=== PATIENT | male | born 1950 | race Caucasian/White ===

== ENCOUNTER 2017-10-29 14:12 | Observation (INO) | payer BC ==
[2017-10-29 15:13] LABS: BASO % 0.8 % (0.0-2.0); EOS # 0.1 K/uL (0.0-0.7); HEMOGLOBIN 14.7 g/dL (12.0-18.0); LYMPH # 1.1 K/uL (1.0-4.3); LYMPH % 22.1 % (20.0-40.0); MEAN CELL VOLUME 79.5 fL (80.0-94.0); MEAN CORPUSCULAR HEMOGLOBIN 26.4 pg (27.0-31.0); MEAN CORPUSCULAR HGB CONC 33.1 g/dL (33.0-37.0); MEAN PLATELET VOLUME 8.9 fL (7.2-11.7); MONO # 0.5 K/uL (0.0-0.8); MONO % 9.5 % (0.0-10.0); NEUT # 3.3 K/uL (1.8-7.0); NEUT % 65.6 % (50.0-75.0); NRBC % 0.1 % (0.0-2.0); RBC 5.59 Mil/uL (4.40-5.90); RED CELL DISTRIBUTION WIDTH 15.9 % (11.5-14.5); WHITE BLOOD COUNT 5.1 K/uL (4.8-10.8)
[2017-10-29 15:31] LABS: ALB/GLOB RATIO 1.2 (1.0-2.1); ALBUMIN 3.9 g/dL (3.5-5.0); ALT/SGPT 14 U/L (21-72); AST/SGOT 19 U/L (17-59); BLOOD UREA NITROGEN 21 mg/dL (9-20); CALCIUM 8.4 mg/dl (8.6-10.4); GFR AFRICAN-AMERICAN > 60; GFR NON-AFRICAN AMERICAN 55; LIPASE 74 U/L (23-300)
[2017-10-29 15:32] LABS: URINE BILIRUBIN NEGATIVE (NEGATIVE); URINE BLOOD 1+ (NEGATIVE); URINE CLARITY Clear (Clear); URINE COLOR Straw (YELLOW); URINE GLUCOSE (UA) NORMAL (Normal); URINE LEUKOCYTE ESTERASE NEG Leu/uL (Negative); URINE PROTEIN NEGATIVE (NEGATIVE); URINE UROBILINOGEN NORMAL mg/dL (0.2-1.0)
--- NOTE | 2017-10-29 16:14 | CT ---
PROCEDURE: CT Abdomen and Pelvis without intravenous contrast HISTORY: flank pain COMPARISON: None. TECHNIQUE: Without contrast.. Contrast Dose: 0 Radiation dose: Total exam DLP = Total exam DLP = 553.05 mGy-cm. This CT exam was performed using one or more of the following dose reduction techniques: Automated exposure control, adjustment of the mA and/or kV according to patient size, and/or use of iterative reconstruction technique. FINDINGS: LOWER THORAX: Bilateral gynecomastia LIVER: Unremarkable. No gross lesion or ductal dilatation. GALLBLADDER AND BILE DUCTS: Unremarkable. PANCREAS: Unremarkable. No gross lesion or ductal dilatation. SPLEEN: Unremarkable. ADRENALS: Unremarkable. No mass. KIDNEYS AND URETERS: Left hydroureteronephrosis. Obstructing 12 mm calculus proximal left ureter. This may reflect several adjacent calculi. Mid left renal cortical cyst, 4.3 cm. No right renal calculus. No other renal mass. VASCULATURE: Unremarkable. No aortic aneurysm. BOWEL: Unremarkable. No obstruction. No gross mural thickening. APPENDIX: Not identified. No secondary findings. PERITONEUM: Unremarkable. No free fluid. No free air. LYMPH NODES: Unremarkable. No enlarged lymph nodes. BLADDER: Poorly distended. No gross abnormality. REPRODUCTIVE: Prostatectomy. BONES: No acute fracture. Grade 1 anterolisthesis L4-5 and grade 1 retrolisthesis L5-S1. No spondylolysis. OTHER FINDINGS: None. IMPRESSION: Obstructing 12 mm calculus proximal left ureter with left hydroureteronephrosis. Please note that this may represent several smaller calculi adjacent to 1 another. Additional minor findings as above.
--- NOTE | 2017-10-29 16:41 | CP.PCM.HP ---
<Mayito Larson - Last Filed: 10/29/17 18:48> History of Present Illness - History of Present Illness History of Present Illness: CC: Flank pain HPI: Patient is 67 year old male, with PMHx of osteoarthritis (knee and hand), chronic low back pain, nephrolithiasis, prostate cancer (prostactectomy in 2007 ) and overactive bladder, who presents to the ED for flank pain. Patient report he was sent up by his PMD, Dr. Weeks due to large size of kidney stone. Patient reports flank pain initially began three weeks ago, which has been increasing over the past week. Describes it as "pinching sensation" in in his left flank, that does not radiate. He rates pain as 9/10 on the severity scale, and is not relieved by "anything." Patient reports pain is so bad he has "not slept for a week." Pain has been associated with fever, nausea, and worsening urinary hesitation over the past "few days." Patient admits having 3 prior episodes of kidney stones, but does not remember what the stones are made out of. He reports last lithotripsy was in ~3 years ago in [place]. Patient denies chest pain, palpitations, abdominal pain, headache, or diarrhea. 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 Weeks Meds: Celebrex 200mg PO PRN 1-2 x per day, Celexa 500mg PO Daily for back pain , Vesicare 20mg PO DAily, Lidocaine patch PRN, Nasonex Present on Admission - Present on Admission Any Indicators Present on Admission: No Review of Systems - Constitutional Constitutional: Fever. absent: Anorexia, Headache - EENT Eyes: absent: Blurred Vision, Change in Vision Nose/Mouth/Throat: absent: Nasal Discharge, Sore Throat - Cardiovascular Cardiovascular: absent: Chest Pain, Dyspnea - Respiratory Respiratory: absent: Cough, Dyspnea - Gastrointestinal Gastrointestinal: Nausea. absent: Abdominal Pain, Constipation, Vomiting - Genitourinary Genitourinary: Difficulty Urinating, Flank Pain (left), Urinary Hesitance. absent: Dysuria - Musculoskeletal Musculoskeletal: Back Pain (chronic). absent: Numbness, Tingling - Integumentary Integumentary: absent: Dry Skin, Wounds - Neurological Neurological: absent: Numbness, Headaches, Tingling, Weakness - Psychiatric Psychiatric: absent: Anxiety, Depression - Endocrine Endocrine: absent: Fatigue, Palpitations Past Patient History - Infectious Disease Hx of Infectious Diseases: None - Past Social History Smoking Status: Never Smoked - RENAL Hx Kidney Stones: Yes - MUSCULOSKELETAL/RHEUMATOLOGICAL Hx Arthritis: Yes - GENITOURINARY/GYNECOLOGICAL Hx Prostate Problems: Yes - PSYCHIATRIC Hx Substance Use: No - SURGICAL HISTORY Hx Surgeries: Yes Hx Joint Replacement: Yes (right knee) Other/Comment: Prostate surgery - ANESTHESIA Hx Anesthesia: Yes Hx Anesthesia Reactions: No Meds Allergies/Adverse Reactions: Allergies Allergy/AdvReac Type Severity Reaction Status Date / Time No Known Allergies Allergy Verified 08/13/17 11:51 Physical Exam - Constitutional Appears: Non-toxic, No Acute Distress - Head Exam Head Exam: ATRAUMATIC, NORMAL INSPECTION - Eye Exam Eye Exam: EOMI. absent: Scleral icterus Pupil Exam: PERRL - ENT Exam ENT Exam: Mucous Membranes Moist - Respiratory Exam Respiratory Exam: Clear to Auscultation Bilateral, NORMAL BREATHING PATTERN. absent: Rales, Rhonchi, Wheezes - Cardiovascular Exam Cardiovascular Exam: REGULAR RHYTHM, +S1, +S2 - GI/Abdominal Exam GI & Abdominal Exam: Normal Bowel Sounds, Soft. absent: Tenderness - Extremities Exam Extremities exam: Positive for: normal inspection. Negative for: pedal edema, tenderness - Back Exam Back exam: CVA tenderness (L). absent: CVA tenderness (R) - Neurological Exam Neurological exam: Alert, CN II-XII Intact, Normal Gait, Oriented x3 - Psychiatric Exam Psychiatric exam: Normal Affect, Normal Mood - Skin Skin Exam: Normal Color, Warm Results - Vital Signs Recent Vital Signs: Last Vital Signs Temp 97.9 F 10/29/17 14:18 Pulse 85 10/29/17 14:18 Resp 18 10/29/17 14:18 BP 164/80 H 10/29/17 14:18 Pulse Ox 100 10/29/17 14:18 - Labs Result Diagrams: 10/29/17 15:09 10/29/17 15:09 Labs: Laboratory Results - last 24 hr 10/29/17 10/29/17 10/29/17 15:09 15:09 15:09 WBC 5.1 RBC 5.59 Hgb 14.7 Hct 44.4 MCV 79.5 L MCH 26.4 L MCHC 33.1 RDW 15.9 H Plt Count 171 MPV 8.9 Neut % (Auto) 65.6 Lymph % (Auto) 22.1 [place] % (Auto) 9.5 Eos % (Auto) 2.0 Baso % (Auto) 0.8 Neut # (Auto) 3.3 Lymph # (Auto) 1.1 [place] # (Auto) 0.5 Eos # (Auto) 0.1 Baso # (Auto) 0.0 Sodium 142 Potassium 4.3 Chloride 98 Carbon Dioxide 27 Anion Gap 21 H BUN 21 H Creatinine 1.3 Est GFR ( Amer) > 60 Est GFR (Non-Af Amer) 55 Random Glucose 107 Calcium 8.4 L Total Bilirubin 0.5 AST 19 ALT 14 L D Alkaline Phosphatase 57 Total Protein 7.3 Albumin 3.9 Globulin 3.4 Albumin/Globulin Ratio 1.2 Lipase 74 Urine Color Straw Urine Clarity Clear Urine pH 7.0 Ur Specific [place] 1.006 Urine Protein Negative Urine Glucose (UA) Normal Urine Ketones Negative Urine Blood 1+ H Urine Nitrate Negative Urine Bilirubin Negative Urine Urobilinogen Normal Ur Leukocyte Esterase Neg Urine WBC (Auto) 1 Urine RBC (Auto) 2 Assessment & Plan - Assessment and Plan (Free Text) Plan: Nephrolithiasis Admit to med surg Afebrile, No Leukocytosis History of 3 prior stones of unknown make-up (last lithotripsy in [facility] 3 years ago) CT A/P (10/29/17): Obstructing 12 mm calculus proximal left ureter with left hydroureteronephrosis. Please note that this may represent several smaller calculi adjacent to 1 another. UA (10/29/17): 1+ blood, negative nitrate, negative LE, [address] Zacarias, Urology regional engagement consultant, help appreciated - f/u reccs Dilaudid 1mg STAT in ED Dilaudid 1mg IV Q4H PRN f/u urine culture Pre-op workup: f/u CXR, PT/INR EKG (10/29/17): Sinus bradycardia @ [address]/T wave changes. NPO for possible procedure in AM Elevated BP since admission Pt denies history of HTN Etiology: Likely pain from kidney stone Monitor Overactive bladder Hold home Vesicare Chronic Low Back Pain History of trauma Hold home lidocaine patches CT A/P (10/29/17): Incidental finding - Grade 1 anterolisthesis L4-L5 and grade 1 retrolisthesis L5-S1. No spondylosis. Hx of prostate cancer Prostatectomy in 2007 Prophylaxis HOLD VTE due to potential surgical procedure SCDs Protonix 40 mg PO Daily Mayito Larson PGY-2 <Bill Maharaj H - Last Filed: 10/29/17 19:12> Results - Vital Signs Recent Vital Signs: Last Vital Signs Temp 98 F 10/29/17 18:42 Pulse 67 10/29/17 18:42 Resp 20 10/29/17 18:42 BP 165/80 H 10/29/17 18:42 Pulse Ox 97 10/29/17 18:42 - Labs Result Diagrams: 10/29/17 15:09 10/29/17 15:09 Labs: Laboratory Results - last 24 hr 10/29/17 10/29/17 10/29/17 15:09 15:09 15:09 WBC 5.1 RBC 5.59 Hgb 14.7 Hct 44.4 MCV 79.5 L MCH 26.4 L MCHC 33.1 RDW 15.9 H Plt Count 171 MPV 8.9 Neut % (Auto) 65.6 Lymph % (Auto) 22.1 [place] % (Auto) 9.5 Eos % (Auto) 2.0 Baso % (Auto) 0.8 Neut # (Auto) 3.3 Lymph # (Auto) 1.1 [place] # (Auto) 0.5 Eos # (Auto) 0.1 Baso # (Auto) 0.0 Sodium 142 Potassium 4.3 Chloride 98 Carbon Dioxide 27 Anion Gap 21 H BUN 21 H Creatinine 1.3 Est GFR ( Amer) > 60 Est GFR (Non-Af Amer) 55 Random Glucose 107 Calcium 8.4 L Total Bilirubin 0.5 AST 19 ALT 14 L D Alkaline Phosphatase 57 Total Protein 7.3 Albumin 3.9 Globulin 3.4 Albumin/Globulin Ratio 1.2 Lipase 74 Urine Color Straw Urine Clarity Clear Urine pH 7.0 Ur Specific [place] 1.006 Urine Protein Negative Urine Glucose (UA) Normal Urine Ketones Negative Urine Blood 1+ H Urine Nitrate Negative Urine Bilirubin Negative Urine Urobilinogen Normal Ur Leukocyte Esterase Neg Urine WBC (Auto) 1 Urine RBC (Auto) 2 Attending/Attestation - Attestation I have personally seen and examined this patient.: Yes I have fully participated in the care of the patient.: Yes I have reviewed all pertinent clinical information: Yes Notes (Text): 10/29/17 19:05 Medical attending: Patient was seen and examined by me. Agree with the above note by the resident The patient was sent in by his private primary physician after the patient was not able to get outpatient follow up with his urologist who is currently away. When we saw the patient he was not in any acute distress however he explained that this pain has been ongoing for the past three weeks and prevents him from sleeping. He has to keep his body as still as possible to minimize the pain. The patient explains he had an outpatient ultrasound showing the stone but did not have a CT scan. The CT ordered in the ER showed a very large 1.2 cm. The patient's creatine is 1.3 Will keep NPO after midnight, give pain medication, he will need to have urology evaluation Bill Maharaj
[2017-10-29] MEDS ORDERED: Morphine 4 MG/ML VIAL IV STA (16:44)
[2017-10-29] MEDS ORDERED: Morphine 4 MG/ML VIAL ONE (16:49)
--- NOTE | 2017-10-29 17:20 | C.PDOC ---
History Of Present Illness 67 y/o male presents to the ER for obstructive kidney stone upon referral of PCP, Dr. Weeks. Patient is complaining of left flank pain and mild nausea. Patient denies having vomiting, hematuria, and dysuria. Chief Complaint (Nursing): Back Pain History Per: Patient History/Exam Limitations: no limitations Onset/Duration Of Symptoms: Days Current Symptoms Are (Timing): Still Present Severity: Moderate Past Medical History Reviewed: Historical Data, Nursing Documentation, Vital Signs Vital Signs: Last Vital Signs Temp 98.3 F 10/29/17 17:38 Pulse 59 L 10/29/17 17:38 Resp 18 10/29/17 17:38 BP 158/70 H 10/29/17 17:38 Pulse Ox 98 10/29/17 17:38 - Medical History PMH: Arthritis, Kidney Stones Other Surgeries: Hx of surgeries Family History: States: No Known Family Hx - Social History Hx Alcohol Use: No Hx Substance Use: No - Immunization History Hx Tetanus Toxoid Vaccination: No Hx Influenza Vaccination: Yes (08/13/2017) Hx Pneumococcal Vaccination: No Review Of Systems Except As Marked, All Systems Reviewed And Found Negative. Constitutional: Negative for: Fever, Chills Gastrointestinal: Positive for: Nausea (mild nausea). Negative for: Vomiting, Diarrhea Genitourinary: Negative for: Dysuria, Hematuria Musculoskeletal: Positive for: Other (left-sided flank pain) Physical Exam - Physical Exam Appears: Non-toxic, No Acute Distress Skin: Normal Color, Warm Head: Atraumatic, Normacephalic Eye(s): bilateral: Normal Inspection Nose: Normal Oral Mucosa: Moist Neck: Supple Chest: Symmetrical Cardiovascular: Rhythm Regular Respiratory: Normal Breath Sounds, No Rales, No Rhonchi, No Wheezing Gastrointestinal/Abdominal: Soft, Tenderness (left flank tenderness) Back: CVA Tenderness (left sided CVA tenderness) Neurological/Psych: Oriented x3, Normal Speech ED Course And Treatment - Laboratory Results Result Diagrams: 10/29/17 15:09 10/29/17 15:09 O2 Sat by Pulse Oximetry: 97 (RA) Pulse Ox Interpretation: Normal - CT Scan/US CT-Abd & Pelv Other Rad Studies (CT/US): Read By Radiologist, Radiology Report Reviewed CT/US Interpretation: PROCEDURE: CT Abdomen and Pelvis without intravenous contrast. HISTORY: flank pain. COMPARISON: None. TECHNIQUE: Without contrast.. Contrast Dose: 0. Radiation dose: Total exam DLP =. Total exam DLP = 553.05 mGy-cm. This CT exam was performed using one or more of the following dose reduction techniques: Automated exposure control, adjustment of the mA and/or kV according to patient size, and/or use of iterative reconstruction technique. FINDINGS: LOWER THORAX: Bilateral gynecomastia. LIVER: Unremarkable. No gross lesion or ductal dilatation. GALLBLADDER AND BILE DUCTS: Unremarkable. PANCREAS: Unremarkable. No gross lesion or ductal dilatation. SPLEEN: Unremarkable. ADRENALS: Unremarkable. No mass. KIDNEYS AND URETERS: Left hydroureteronephrosis. Obstructing 12 mm calculus proximal left ureter. This may reflect several adjacent calculi. Mid left renal cortical cyst, 4.3 cm. No right renal calculus. No other renal mass. VASCULATURE: Unremarkable. No aortic aneurysm. BOWEL: Unremarkable. No obstruction. No gross mural thickening. APPENDIX: Not identified. No secondary findings. PERITONEUM: Unremarkable. No free fluid. No free air. LYMPH NODES: Unremarkable. No enlarged lymph nodes. BLADDER: Poorly distended. No gross abnormality. REPRODUCTIVE: Prostatectomy. BONES: No acute fracture. Grade 1 anterolisthesis L4-5 and grade 1 retrolisthesis L5-S1. No spondylolysis. OTHER FINDINGS: None. IMPRESSION: Obstructing 12 mm calculus proximal left ureter with left hydroureteronephrosis. Please note that this may represent several smaller calculi adjacent to 1 another. Additional minor findings as above. Progress Note: Case discussed with who will admit patient under his service. Message has been left for Dr. Jose Arias for consult. Disposition - Disposition Disposition: HOSPITALIZED Disposition Time: 16:00 Condition: STABLE - Clinical Impression Clinical Impression: Kidney stone, Hydronephrosis - Scribe Statement The provider has reviewed the documentation as recorded by the Scribe Digna Reece Provider Attestation: All medical record entries made by the Scribe were at my direction and personally dictated by me. I have reviewed the chart and agree that the record accurately reflects my personal performance of the history, physical exam, medical decision making, and the department course for this patient. I have also personally directed, reviewed, and agree with the discharge instructions and disposition.
[2017-10-29] MEDS ORDERED: HYDROmorphone 1 mg/ml ISec IVP STA (17:33)
[2017-10-29] MEDS ORDERED: HYDROmorphone 1 mg/ml ISec ONE (17:39)
[2017-10-29] MEDS ORDERED: HYDROmorphone 1 mg/ml ISec IVP PRN (21:30)
[2017-10-30 05:40] LABS: BASO # 0.1 K/uL (0.0-0.2); BASO % 1.3 % (0.0-2.0); EOS # 0.1 K/uL (0.0-0.7); EOS % 2.5 % (0.0-4.0); HEMOGLOBIN 13.3 g/dL (12.0-18.0); LYMPH # 0.9 K/uL (1.0-4.3); LYMPH % 20.9 % (20.0-40.0); MEAN CELL VOLUME 79.6 fL (80.0-94.0); MEAN CORPUSCULAR HEMOGLOBIN 25.8 pg (27.0-31.0); MEAN CORPUSCULAR HGB CONC 32.4 g/dL (33.0-37.0); MEAN PLATELET VOLUME 8.7 fL (7.2-11.7); MONO # 0.4 K/uL (0.0-0.8); MONO % 9.5 % (0.0-10.0); NEUT % 65.8 % (50.0-75.0); RBC 5.16 Mil/uL (4.40-5.90); RED CELL DISTRIBUTION WIDTH 15.9 % (11.5-14.5); WHITE BLOOD COUNT 4.5 K/uL (4.8-10.8)
[2017-10-30 05:47] LABS: INR 1.1; PROTHROMBIN TIME 12.3 SECONDS (9.7-12.2)
[2017-10-30 06:22] LABS: ALB/GLOB RATIO 1.1 (1.0-2.1); ALBUMIN 3.3 g/dL (3.5-5.0); CALCIUM 8.5 mg/dl (8.6-10.4)
--- NOTE | 2017-10-30 07:23 | CP.PCM.PN ---
<Latrice Bautista - Last Filed: 10/30/17 12:45> Subjective - Date & Time of Evaluation Date of Evaluation: 10/30/17 Time of Evaluation: 07:42 - Subjective Subjective: Progress Note: Patient seen and examined at bedside. Patient is NPO in case of procedure. Patient still has left back pain but says he doesn't want to take the pain med because he doesn't want to get sleepy. Patient denies fever, chills, abdominal pain, nausea, vomiting. Patient brought to OR this morning. Objective - Vital Signs/Intake and Output Vital Signs (last 24 hours): Temp Pulse Resp BP Pulse Ox 98.4 F 73 20 129/71 97 10/30/17 06:00 10/30/17 06:00 10/30/17 06:00 10/30/17 06:00 10/30/17 06:00 Intake and Output: 10/30/17 10/30/17 06:59 18:59 Intake Total 200 Output Total 550 Balance -350 - Medications Medications: Current Medications Hydromorphone HCl (Dilaudid) 1 mg IVP Q4H PRN PRN Reason: Pain, moderate (4-7) Pantoprazole Sodium (Protonix Ec Tab) 40 mg PO Q24H [place] Pneumococcal Polyvalent Vaccine (Pneumovax 23 Vaccine) 0.5 ml IM .ONCE ONE Stop: 10/31/17 10:01 - Labs Labs: 10/30/17 05:35 10/30/17 05:35 PT 12.3 SECONDS (9.7-12.2) H 10/30/17 05:35 INR 1.1 10/30/17 05:35 APTT 29 SECONDS (21-34) 10/30/17 05:35 - Additional Findings Additional findings: - Constitutional Appears: Non-toxic, No Acute Distress - Head Exam Head Exam: ATRAUMATIC, NORMAL INSPECTION - Eye Exam Eye Exam: EOMI. absent: Scleral icterus Pupil Exam: PERRL - ENT Exam ENT Exam: Mucous Membranes Moist - Respiratory Exam Respiratory Exam: Clear to Auscultation Bilateral, NORMAL BREATHING PATTERN. absent: Rales, Rhonchi, Wheezes - Cardiovascular Exam Cardiovascular Exam: REGULAR RHYTHM, +S1, +S2 - GI/Abdominal Exam GI & Abdominal Exam: Normal Bowel Sounds, Soft. absent: Tenderness - Extremities Exam Extremities exam: Positive for: normal inspection. Negative for: pedal edema, tenderness - Back Exam Back exam: CVA tenderness (L). absent: CVA tenderness (R) - Neurological Exam Neurological exam: Alert, CN II-XII Intact, Normal Gait, Oriented x3 - Psychiatric Exam Psychiatric exam: Normal Affect, Normal Mood - Skin Skin Exam: Normal Color, Warm Assessment and Plan - Assessment and Plan (Free Text) Assessment: Nephrolithiasis creatinine elevated 1.3 to 1.6 Admit to med surg Afebrile, No Leukocytosis History of 3 prior stones of unknown make-up (last lithotripsy in [facility] 3 years ago) CT A/P (10/29/17): Obstructing 12 mm calculus in proximal left ureter with left hydroureteronephrosis, which may represent several smaller calculi adjacent to each other UA (10/29/17): 1+ blood, negative nitrate, negative LE, [address] WBC urine cx negative [address] Arias, Urology consult: Patient went to OR this morning. will f.u Dilaudid 1mg IV Q4H PRN Pre-op workup: f/u CXR, PT/INR EKG (10/29/17): Sinus bradycardia @ [address]/T wave changes. NPO for possible procedure in AM Elevated BP since admission Pt denies history of HTN Etiology: Likely pain from kidney stone Monitor Overactive bladder Hold home Vesicare Chronic Low Back Pain History of trauma Hold home lidocaine patches CT A/P (10/29/17): Incidental finding - Grade 1 anterolisthesis L4-L5 and grade 1 retrolisthesis L5-S1. No spondylosis. Hx of prostate cancer Prostatectomy in 2007 Prophylaxis HOLD VTE due to potential surgical procedure SCDs Protonix 40 mg PO Daily Latrice Bautista DO PGY1 <Bill Maharaj H - Last Filed: 10/30/17 15:20> Objective - Vital Signs/Intake and Output Vital Signs (last 24 hours): Temp Pulse Resp BP Pulse Ox 99.2 F 59 L 9 L 133/74 100 10/30/17 13:22 10/30/17 13:50 10/30/17 13:50 10/30/17 13:50 10/30/17 13:50 Intake and Output: 10/30/17 10/30/17 06:59 18:59 Intake Total 200 700 Output Total 550 Balance -350 700 - Medications Medications: Current Medications Hydromorphone HCl (Dilaudid) 1 mg IVP Q4H PRN PRN Reason: Pain, moderate (4-7) Hydromorphone HCl (Dilaudid) 0.5 mg IVP Q5M PRN PRN Reason: Pain, severe (8-10) Stop: 10/30/17 15:24 Ondansetron HCl (Zofran Inj) 4 mg IVP ONCE PRN PRN Reason: Nausea/Vomiting Stop: 10/30/17 15:24 Pantoprazole Sodium (Protonix Ec Tab) 40 mg PO Q24H [place] Pneumococcal Polyvalent Vaccine (Pneumovax 23 Vaccine) 0.5 ml IM .ONCE ONE Stop: 10/30/17 15:07 - Labs Labs: 10/30/17 05:35 10/30/17 05:35 PT 12.3 SECONDS (9.7-12.2) H 10/30/17 05:35 INR 1.1 10/30/17 05:35 APTT 29 SECONDS (21-34) 10/30/17 05:35 Attending/Attestation - Attestation I have personally seen and examined this patient.: Yes I have fully participated in the care of the patient.: Yes I have reviewed all pertinent clinical information, including history, physical exam and plan: Yes Notes (Text): 10/30/17 15:20 Medical attending: Patient was seen and examined by me, I reviewed the above note by bilingual medical assistant. Agree with the above note. I saw the patient very early in the morning with the bilingual medical assistant. This being wheeled down to the operating room. I later again saw the patient in the afternoon. He had completed a left cystoscopy with insertion of a stent. As reported previously he has a 1.2 cm stone in the proximal ureter. He was sent in by his primary care physician. After the procedure he was walking in the hallway. He said that he felt very comfortable and was not having any pain or discomfort when we saw him. The patient is going to be discharged today. I spoke with the patient's primary care physician and updated him. There was already a prescription for Levaquin, Pyridium, and Tylenol No. 3. The patient will need to follow-up at the [facility] on 11/01/17 at 11 AM for further urology procedures thank you Bill Maharaj
--- NOTE | 2017-10-30 11:11 | CARD ---
APPROVED REPORT EKG Measurement Heart [id number] MD [id number] <Conclusion> Sinus bradycardia Otherwise normal ECG
--- NOTE | 2017-10-30 11:33 | RAD ---
HISTORY: urolithiasis COMPARISON: 08/13/2017 lumbar spine documenting calculus disease. October 29, 2017. CT abdomen pelvis documenting proximal left ureteral calculus. FINDINGS: BOWEL: Normal. No obstruction. No free air. BONES: Normal. OTHER FINDINGS: Stable calculus disease proximal left ureter on plain film radiographs measuring 12.2 by 5.9 mm. Postoperative findings related to prior prostatectomy. IMPRESSION: Documentation of known proximal left ureteral calculus.
[2017-10-30] MEDS ORDERED: cefTRIAXone 1 gm 1 GM/100 ML BAG IVPB ONE (11:46)
[2017-10-30] MEDS ORDERED: Iohexol 240 (50 ml) ONE (11:46)
[2017-10-30] MEDS ORDERED: Propofol 10 mg/ml Inj (20 ML) ONE (11:59)
--- NOTE | 2017-10-30 12:04 | RAD ---
HISTORY: pre-op COMPARISON: No prior. FINDINGS: LUNGS: No active pulmonary disease. PLEURA: No significant pleural effusion identified, no pneumothorax apparent. CARDIOVASCULAR: Normal. OSSEOUS STRUCTURES: No significant abnormalities. VISUALIZED UPPER ABDOMEN: Normal. OTHER FINDINGS: None. IMPRESSION: No active disease.
[2017-10-30] MEDS ORDERED: HYDROmorphone 0.5 mg/0.5 ml ISec IVP PRN (13:23)
[2017-10-30 13:33] VITALS: RESP 9; TEMP 99.2; O2SAT 100
[2017-10-30 13:56] VITALS: BP 133/74; PULSE 59
--- NOTE | 2017-10-30 14:53 | CP.PCM.DIS ---
<MicheleLatrice - Last Filed: 10/30/17 17:32> Provider - Provider Date of Admission: 10/29/17 16:37 Attending physician: Bill Maharaj DO Consults: Dr. Jose Arias Time Spent in preparation of Discharge (in minutes): 35 Hospital Course - Lab Results Lab Results: Micro Results 10/29/17 14:39 Urine Urine Culture - Final No Growth (<1,000 CFU/ML) Most Recent Lab Values WBC 4.5 K/uL (4.8-10.8) L 10/30/17 05:35 RBC 5.16 Mil/uL (4.40-5.90) 10/30/17 05:35 Hgb 13.3 g/dL (12.0-18.0) 10/30/17 05:35 Hct 41.1 % (35.0-51.0) 10/30/17 05:35 MCV 79.6 fL (80.0-94.0) L 10/30/17 05:35 MCH 25.8 pg (27.0-31.0) L 10/30/17 05:35 MCHC 32.4 g/dL (33.0-37.0) L 10/30/17 05:35 RDW 15.9 % (11.5-14.5) H 10/30/17 05:35 Plt Count 162 K/uL (130-400) 10/30/17 05:35 MPV 8.7 fL (7.2-11.7) 10/30/17 05:35 Neut % (Auto) 65.8 % (50.0-75.0) 10/30/17 05:35 Lymph % (Auto) 20.9 % (20.0-40.0) 10/30/17 05:35 [place] % (Auto) 9.5 % (0.0-10.0) 10/30/17 05:35 Eos % (Auto) 2.5 % (0.0-4.0) 10/30/17 05:35 Baso % (Auto) 1.3 % (0.0-2.0) 10/30/17 05:35 Neut # (Auto) 3.0 K/uL (1.8-7.0) 10/30/17 05:35 Lymph # (Auto) 0.9 K/uL (1.0-4.3) L 10/30/17 05:35 [place]anan # (Auto) 0.4 K/uL (0.0-0.8) 10/30/17 05:35 Eos # (Auto) 0.1 K/uL (0.0-0.7) 10/30/17 05:35 Baso # (Auto) 0.1 K/uL (0.0-0.2) 10/30/17 05:35 PT 12.3 SECONDS (9.7-12.2) H 10/30/17 05:35 INR 1.1 10/30/17 05:35 APTT 29 SECONDS (21-34) 10/30/17 05:35 Sodium 137 mmol/L (132-148) 10/30/17 05:35 Potassium 4.6 mmol/L (3.6-5.2) 10/30/17 05:35 Chloride 102 mmol/L (98-107) 10/30/17 05:35 Carbon Dioxide 28 mmol/L (22-30) 10/30/17 05:35 Anion Gap 11 (10-20) 10/30/17 05:35 BUN 26 mg/dL (9-20) H 10/30/17 05:35 Creatinine 1.6 mg/dL (0.8-1.5) H 10/30/17 05:35 Est GFR ( Amer) 52 10/30/17 05:35 Est GFR (Non-Af Amer) 43 10/30/17 05:35 Random Glucose 96 mg/dL (75-110) 10/30/17 05:35 Calcium 8.5 mg/dl (8.6-10.4) L 10/30/17 05:35 Phosphorus 3.0 mg/dL (2.5-4.5) 10/30/17 05:35 Magnesium 2.0 mg/dL (1.6-2.3) 10/30/17 05:35 Total Bilirubin 0.4 mg/dL (0.2-1.3) 10/30/17 05:35 AST 16 U/L (17-59) L 10/30/17 05:35 ALT 16 U/L (21-72) L 10/30/17 05:35 Alkaline Phosphatase 50 U/L (38-126) 10/30/17 05:35 Total Protein 6.2 g/dL (6.3-8.3) L 10/30/17 05:35 Albumin 3.3 g/dL (3.5-5.0) L 10/30/17 05:35 Globulin 2.9 gm/dL (2.2-3.9) 10/30/17 05:35 Albumin/Globulin Ratio 1.1 (1.0-2.1) 10/30/17 05:35 Lipase 74 U/L (23-300) 10/29/17 15:09 Urine Color Straw (YELLOW) 10/29/17 15:09 Urine Clarity Clear (Clear) 10/29/17 15:09 Urine pH 7.0 (5.0-8.0) 10/29/17 15:09 Ur Specific [place] 1.006 (1.003-1.030) 10/29/17 15:09 Urine Protein Negative mg/dL (NEGATIVE) 10/29/17 15:09 Urine Glucose (UA) Normal mg/dL (Normal) 10/29/17 15:09 Urine Ketones Negative mg/dL (NEGATIVE) 10/29/17 15:09 Urine Blood 1+ (NEGATIVE) H 10/29/17 15:09 Urine Nitrate Negative (NEGATIVE) 10/29/17 15:09 Urine Bilirubin Negative (NEGATIVE) 10/29/17 15:09 Urine Urobilinogen Normal mg/dL (0.2-1.0) 10/29/17 15:09 Ur Leukocyte Esterase Neg Bigg/uL (Negative) 10/29/17 15:09 Urine WBC (Auto) 1 /hpf (0-5) 10/29/17 15:09 Urine RBC (Auto) 2 /hpf (0-3) 10/29/17 15:09 - Hospital Course Hospital Course: Patient is 67 year old male, with PMHx of osteoarthritis (knee and hand), chronic low back pain, nephrolithiasis, prostate cancer (prostactectomy in 2007 ) and overactive bladder, who presents to the ED for flank pain. Patient report he was sent up by his PMD, Dr. Weeks due to large size of kidney stone. Patient reports flank pain initially began three weeks ago, which has been increasing over the past week. Describes it as "pinching sensation" in in his left flank, that does not radiate. He rates pain as 9/10 on the severity scale, and is not relieved by "anything." Patient reports pain is so bad he has "not slept for a week." Pain has been associated with fever, nausea, and worsening urinary hesitation over the past "few days." Patient admits having 3 prior episodes of kidney stones, but does not remember what the stones are made out of. He reports last lithotripsy was in ~3 years ago in [place]. Patient denies chest pain, palpitations, abdominal pain, headache, or diarrhea. Hospital Course Patient had cysto with fluoroscopy and stent placement. Patient instructed to take antibiotics and pain medications as directed. Patient tolerated procedure well and is seen walking and talking without signs of distress. - Date & Time of H&P Date of H&P: 10/30/17 Time of H&P: 14:53 Discharge Exam - Head Exam Head Exam: ATRAUMATIC, NORMAL INSPECTION - Eye Exam Eye Exam: EOMI, Normal appearance - ENT Exam ENT Exam: Mucous Membranes Moist - Neck Exam Neck exam: Full Rom - Respiratory Exam Respiratory Exam: Clear to PA & Lateral, NORMAL BREATHING PATTERN. absent: Accessory Muscle Use - Cardiovascular Exam Cardiovascular Exam: REGULAR RHYTHM, +S1, +S2 - GI/Abdominal Exam GI & Abdominal Exam: Soft. absent: Tenderness - Extremities Exam Extremities exam: full ROM, normal capillary refill, pedal pulses present - Back Exam Back exam: CVA tenderness (L) (mild), FULL ROM - Neurological Exam Neurological exam: Alert, CN II-XII Intact, Normal Gait - Psychiatric Exam Psychiatric exam: Normal Affect, Normal Mood - Skin Skin Exam: Dry, Normal Color, Warm Discharge Plan - Follow Up Plan Condition: STABLE Disposition: HOME/ ROUTINE Instructions: Kidney Stones (DC), Levofloxacin (Systemic), Hydronephrosis, Adult (DC), Acetaminophen and Codeine, Phenazopyridine Additional Instructions: follow up with DR. Arias at [facility] 11/01/17 take medications as directed attached is Doctor's note excusing you from work until after the procedure. next appt is in [place] at the [facility] on 11/01 Medicine team: patient is medically cleared for discharged to follow up with DR. Arias at [facility] 11/01/17 take medications as directed attached is Doctor's note excusing you from work until after the procedure Referrals: Jose Arias MD [Staff Provider] - <Bill Maharaj - Last Filed: 10/30/17 18:36> Provider - Provider Date of Admission: 10/29/17 16:37 Attending physician: Bill Maharaj DO Hospital Course - Lab Results Lab Results: Micro Results 10/29/17 14:39 Urine Urine Culture - Final No Growth (<1,000 CFU/ML) Most Recent Lab Values WBC 4.5 K/uL (4.8-10.8) L 10/30/17 05:35 RBC 5.16 Mil/uL (4.40-5.90) 10/30/17 05:35 Hgb 13.3 g/dL (12.0-18.0) 10/30/17 05:35 Hct 41.1 % (35.0-51.0) 10/30/17 05:35 MCV 79.6 fL (80.0-94.0) L 10/30/17 05:35 MCH 25.8 pg (27.0-31.0) L 10/30/17 05:35 MCHC 32.4 g/dL (33.0-37.0) L 10/30/17 05:35 RDW 15.9 % (11.5-14.5) H 10/30/17 05:35 Plt Count 162 K/uL (130-400) 10/30/17 05:35 MPV 8.7 fL (7.2-11.7) 10/30/17 05:35 Neut % (Auto) 65.8 % (50.0-75.0) 10/30/17 05:35 Lymph % (Auto) 20.9 % (20.0-40.0) 10/30/17 05:35 Buchanan % (Auto) 9.5 % (0.0-10.0) 10/30/17 05:35 Eos % (Auto) 2.5 % (0.0-4.0) 10/30/17 05:35 Baso % (Auto) 1.3 % (0.0-2.0) 10/30/17 05:35 Neut # (Auto) 3.0 K/uL (1.8-7.0) 10/30/17 05:35 Lymph # (Auto) 0.9 K/uL (1.0-4.3) L 10/30/17 05:35 [place]anan # (Auto) 0.4 K/uL (0.0-0.8) 10/30/17 05:35 Eos # (Auto) 0.1 K/uL (0.0-0.7) 10/30/17 05:35 Baso # (Auto) 0.1 K/uL (0.0-0.2) 10/30/17 05:35 PT 12.3 SECONDS (9.7-12.2) H 10/30/17 05:35 INR 1.1 10/30/17 05:35 APTT 29 SECONDS (21-34) 10/30/17 05:35 Sodium 137 mmol/L (132-148) 10/30/17 05:35 Potassium 4.6 mmol/L (3.6-5.2) 10/30/17 05:35 Chloride 102 mmol/L (98-107) 10/30/17 05:35 Carbon Dioxide 28 mmol/L (22-30) 10/30/17 05:35 Anion Gap 11 (10-20) 10/30/17 05:35 BUN 26 mg/dL (9-20) H 10/30/17 05:35 Creatinine 1.6 mg/dL (0.8-1.5) H 10/30/17 05:35 Est GFR ( Amer) 52 10/30/17 05:35 Est GFR (Non-Af Amer) 43 10/30/17 05:35 Random Glucose 96 mg/dL (75-110) 10/30/17 05:35 Calcium 8.5 mg/dl (8.6-10.4) L 10/30/17 05:35 Phosphorus 3.0 mg/dL (2.5-4.5) 10/30/17 05:35 Magnesium 2.0 mg/dL (1.6-2.3) 10/30/17 05:35 Total Bilirubin 0.4 mg/dL (0.2-1.3) 10/30/17 05:35 AST 16 U/L (17-59) L 10/30/17 05:35 ALT 16 U/L (21-72) L 10/30/17 05:35 Alkaline Phosphatase 50 U/L (38-126) 10/30/17 05:35 Total Protein 6.2 g/dL (6.3-8.3) L 10/30/17 05:35 Albumin 3.3 g/dL (3.5-5.0) L 10/30/17 05:35 Globulin 2.9 gm/dL (2.2-3.9) 10/30/17 05:35 Albumin/Globulin Ratio 1.1 (1.0-2.1) 10/30/17 05:35 Lipase 74 U/L (23-300) 10/29/17 15:09 Urine Color Straw (YELLOW) 10/29/17 15:09 Urine Clarity Clear (Clear) 10/29/17 15:09 Urine pH 7.0 (5.0-8.0) 10/29/17 15:09 Ur Specific [place] 1.006 (1.003-1.030) 10/29/17 15:09 Urine Protein Negative mg/dL (NEGATIVE) 10/29/17 15:09 Urine Glucose (UA) Normal mg/dL (Normal) 10/29/17 15:09 Urine Ketones Negative mg/dL (NEGATIVE) 10/29/17 15:09 Urine Blood 1+ (NEGATIVE) H 10/29/17 15:09 Urine Nitrate Negative (NEGATIVE) 10/29/17 15:09 Urine Bilirubin Negative (NEGATIVE) 10/29/17 15:09 Urine Urobilinogen Normal mg/dL (0.2-1.0) 10/29/17 15:09 Ur Leukocyte Esterase Neg Bigg/uL (Negative) 10/29/17 15:09 Urine WBC (Auto) 1 /hpf (0-5) 10/29/17 15:09 Urine RBC (Auto) 2 /hpf (0-3) 10/29/17 15:09 Attending/Attestation - Attestation I have personally seen and examined this patient.: Yes I have fully participated in the care of the patient.: Yes I have reviewed all pertinent clinical information, including history, physical exam and plan: Yes Notes (Text): 10/30/17 18:34 Medical attending: Patient was seen and examined by me, I reviewed the above note by medical imaging technologist. Agree with the above note. I also spoke with the patient's PMD who sent patient to the hospital, Dr Prabha Weeks and updated him. We saw the patient very early in the morning and later again saw the patient in the afternoon. He had completed a left cystoscopy with insertion of a stent. As reported previously he has a 1.2 cm stone in the proximal ureter. He was sent in by his primary care physician. He did well, after the procedure he was up and about in the hallway. He said that he felt very comfortable and was not having any pain or discomfort when we saw him. There was already a prescription for Levaquin, Pyridium, and Tylenol No. 3. The patient will need to follow-up at the [facility] on 11/01/17 at 11 AM for further urology procedures thank you Bill Maharaj
[2017-10-30] MEDS ORDERED: Pneumococcal 23-Valent Vaccine IM ONE (15:30)
--- NOTE | 2017-10-30 15:46 | RAD ---
PROCEDURE: Intraoperative Fluoroscopy. HISTORY: LEFT KIDNEY STONE FINDINGS: Fluoroscopic assistance was provided for sister epicondylar retrograde study. Please refer to the operative report from VALDEZ Delcid, , MD GRACY. Total fluoroscopic time (continuous mode) utilized during the procedure 37.3 (seconds). Total exam DLP: (mGy) 1.79
--- NOTE | 2017-10-30 15:47 | RAD ---
HISTORY: LT KIDNEY STONE COMPARISON: October 29, 2017. Abdominal x-ray FINDINGS: BOWEL: Normal. No obstruction. No free air. BONES: Normal. OTHER FINDINGS: Stable appearance of proximal left ureteral calculus. This measures 8 x 11 mm. IMPRESSION: No significant interval change compared to the prior examination(s).
[2017-10-30] MEDS ORDERED: Pantoprazole 40 mg EC Tab PO SCH (18:00)
[2017-10-31] MEDS ORDERED: Pneumococcal 23-Valent Vaccine IM ONE (10:00)
--- NOTE | 2017-11-12 14:46 | CON ---
DATE: REASON FOR CONSULTATION: Severe renal colic and hydronephrosis with stone. HISTORY OF PRESENT ILLNESS: History is from the patient and from the chart. The patient presents with severe renal colic with hydronephrosis and obstructing stone. See the plan listed below. PAST MEDICAL HISTORY AND SURGICAL HISTORY: No history of an [place] or CVA. REVIEW OF SYSTEMS: Otherwise essentially unremarkable review of systems with no weight loss, chest pain, or shortness of breath. MEDICATIONS: See the chart. ALLERGIES: NO KNOWN DRUG ALLERGIES. PHYSICAL EXAMINATION: As mentioned. LABORATORY DATA: See the chart. CT scan, noted. DIAGNOSES: Urolithiasis, hematuria, hydronephrosis, severe renal colic. PLAN: As follows, we are going to bring the patient to the operating room, we are going to do a cystoscopy, retrograde, stent. Turning back, the patient has had a today, so we are going to make arrangements for the scope to be possible tomorrow and then further plans. We did not do the x-rays, most likely after this the patient will have a shockwave lithotripsy. We will discuss the possibility for ESWL versus ureteroscopy and laser lithotripsy. Further plans will follow In the meantime. IMPRESSION: 1. Hydration. 2. Stone in the urine. 3. Analgesic. PLAN: Further plans are cystoscopy, retrograde pyelogram, and stent insertion and further plans will follow. I explained to the patient in great detail and further plans will follow. Reymundo Arias MD
--- NOTE | 2017-11-13 06:07 | OP ---
PROCEDURE DATE: UROLOGY OPERATIVE NOTE. PREOPERATIVE DIAGNOSIS: Urolithiasis, intermittent flank pain, hematuria, renal colic. POSTOPERATIVE DIAGNOSIS: Urolithiasis, intermittent flank pain, hematuria, renal colic. PROCEDURE: Cystoscopy, retrograde pyelogram, double J-stent insertion. SURGEON: Reymundo Arias MD COMPLICATIONS: There were no complications. ESTIMATED BLOOD LOSS: Less than 10 mL. DRAINS: Double J-stent 6-[place]. INDICATIONS: See the history and physical for further details. A very pleasant gentleman who is here for the above procedure. See the history and physical and consultation. We discussed the options. DESCRIPTION OF PROCEDURE: After obtaining informed consent, the patient was placed on the table. Routine monitors were placed. Time-out was called. We confirmed the patient positioning. Cystoscope via the urethra. The anterior urethra is normal. . . wire was passed up to the kidney. . At this point, we did double J stenting, emptying the bladder, cystoscope was removed. The patient tolerated the procedure well without complication. The plan is to bring the patient carefully to [facility] for either a shock wave lithotripsy or for ureteroscopy. Reymundo Arias MD
== END 2017-10-30 15:51 | disposition home or self-care (01) ==
LOC: C.ER 14:12 → C.9E 16:37 → C.3T 17:05
PROVIDERS: ADMIT Hospitalist; ATTEND Hospitalist
DX: N13.2 Hydronephrosis with renal and ureteral calculous obstruction (principal); N32.81 Overactive bladder; M43.16 Spondylolisthesis, lumbar region; M17.10 Unilateral primary osteoarthritis, unspecified knee; Z23 Encounter for immunization
CPT/HCPCS: 36415; 52332; 71045; 74018; 74022; 74176; 76000; 80053; 81001; 83690; 83735; 84100; 85025; 85610; 85730; 87086; 90732; 93005; 96374; 96375; 99285; C1758; C1769; C2617; G0009; G0378; J0696; J1170; J1885; J2270; Q9966

== ENCOUNTER 2017-12-04 12:26 | Day surgery (SDC) | payer BC ==
[2017-12-04] MEDS ORDERED: Propofol 10 mg/ml Inj (20 ML) ONE (16:19)
[2017-12-04] MEDS ORDERED: Midazolam 2 MG/2 ML VIAL ONE (16:19)
[2017-12-04] MEDS ORDERED: cefTRIAXone IV 1 gm in Dextros 50 ML IVPB ONE (16:32)
[2017-12-04] MEDS ORDERED: Iohexol 240 (50 ml) ONE (16:33)
[2017-12-04] MEDS ORDERED: Lidocaine 2% Jelly (Uro-Jet) ONE (16:47)
[2017-12-04] MEDS ORDERED: HYDROmorphone 0.5 mg/0.5 ml ISec IVP PRN (17:20)
[2017-12-04] MEDS ORDERED: Ciprofloxacin 400mg/200ml D5W 400 MG/200 ML BAG IVPB STA (17:26)
[2017-12-04 18:11] VITALS: O2SAT 100
[2017-12-04 18:44] VITALS: BP 138/69; PULSE 60; RESP 16; TEMP 97.5
--- NOTE | 2017-12-05 11:27 | RAD ---
PROCEDURE: Intraoperative Fluoroscopy. HISTORY: LT KIDNEY STONE FINDINGS: Fluoroscopic assistance was provided. 4.5 seconds fluoroscopy time utilized during this procedure. Radiation dose = 1.24 mGy -cm. Please refer to the operative report from VALDEZ Ulloa
--- NOTE | 2017-12-05 13:22 | RAD ---
HISTORY: LT KIDNEY STONE COMPARISON: 10/30/2017 FINDINGS: BOWEL: Left ureteral stent. Previously identified proximal left ureteral calculus is not evident. Surgical clips in pelvis. BONES: Normal. OTHER FINDINGS: None. IMPRESSION: Left ureteral stent. Previously identified proximal ureteral calculus no longer identified.
--- NOTE | 2017-12-20 06:11 | HP ---
UROLOGY ADMISSION HISTORY AND PHYSICAL REASON FOR ADMISSION: Treatment of kidney stones. HISTORY OF PRESENT ILLNESS: The patient is a very pleasant gentleman who we previously met with some voiding dysfunction and kidney stones. He complains of frequency, urgency. He also has met the urologist before but now he is coming in with kidney stones. He was here yesterday for cysto and a ureteroscopy and maybe treatment of a stone. PAST MEDICAL AND SURGICAL HISTORY: As above. No history of [place] or CVA. SOCIAL HISTORY: He is . Otherwise, unremarkable. Working as a . REVIEW OF SYSTEMS: No weight loss, chest pain, or shortness of breath. PHYSICAL EXAMINATION GENERAL: A well-nourished male in no apparent distress. VITAL SIGNS: Noted. NECK: No cervical or axillary lymphadenopathy. LUNGS: Clear to auscultation. ABDOMEN: Soft and nontender. Not grossly distended, difficult to confirm. GENITOURINARY: The patient has a normal phallus without discharge. No testicular masses. RECTAL: 20 to 30 gm prostate, soft and smooth. DIAGNOSES: 1. Urolithiasis. 2. Left flank pain. 3. Left hydronephrosis, stone disease. The patient is here for further treatments, see previous notes. We will discuss options, cystoscopy, ESWL treatment. Today, the patient is here for cystoscopy and ureteroscopy. PLAN: 1. Antibiotic prophylaxis. 2. Cystoscopy. 3. Ureteroscopy and laser lithotripsy. 4. Further plans will follow. As previously mentioned, I explained to the patient that we are going to proceed here but if possible that he will need more treatments than yesterday. Further plans are to follow. Further plans including, see other notes and see notes, etc., and other options for treatment, but today we are going to do cystoscopy and ureteroscopy. Reymundo Arias MD
--- NOTE | 2017-12-20 06:56 | OP ---
PROCEDURE DATE: 12/04/2017 PREOPERATIVE DIAGNOSES: Urolithiasis, hematuria, hydronephrosis, left flank pain, voiding dysfunction, frequency and urgency. POSTOPERATIVE DIAGNOSES: Urolithiasis, hematuria, hydronephrosis, left flank pain, voiding dysfunction, frequency and urgency. PROCEDURE: Cystoscopy, left ureteroscopy, left laser lithotripsy, and insertion of double J stent. COMPLICATIONS: None. SURGEON: Reymundo Arias MD ESTIMATED BLOOD LOSS: Less than 10 mL. INDICATIONS: See history and physical for further details. This is a pleasant gentleman who has had multiple treatments for the stone he has really heavy, heavy stone burden with multiple stones along the ureter. See the other many dictated notes including other hospitalization. The patient is here today for the above listed procedure. FINDINGS: There are multiple stones along the ureter, we lasered as best as we could. Overall the patient tolerated the procedure well without complication. DESCRIPTION OF PROCEDURE: After obtaining informed consent, the patient was placed on the table. Routine monitor was placed. Time-out was called to confirm the patient and positioning. We introduced the cystoscope via urethra. Urethral orifice was identified and wire passed up, once we ureteroscope, we identified multiple stones as well as fluoroscopic imaging as well , the whole thing is done with a camera, so I had assistant education director to help me. We set up the laser, we lasered multiple stones. Overall the patient tolerated the procedure well without complications. We put a double J stent in. The patient tolerated without complications. Reymundo Arias MD
== END 2017-12-04 18:44 | disposition home or self-care (01) ==
LOC: C.SDS 12:26
PROVIDERS: ATTEND Urology
DX: N13.2 Hydronephrosis with renal and ureteral calculous obstruction (principal); R31.29 Other microscopic hematuria
CPT/HCPCS: 52356; 74018; C1758; C1769; C2617; J0696; J0744; Q9966